=== PATIENT | male | born 1985 | race African-American/Black ===

== ENCOUNTER 2022-12-09 19:27 | Emergency (ER) | payer OTHER ==
[~2022-12-09] VITALS: Ht 172.7 cm; Wt 107.0 kg
[2022-12-09] VITALS (10 sets, daily range): BP systolic 104–135; BP diastolic 63–86
[2022-12-09 20:29] LABS: GFR FOR AFR.AMER. > 60 ML/MIN (>=60 (CALC)); GFR OTHER RACES > 60 ML/MIN (>=60 (CALC))
[2022-12-09] MEDS ORDERED: KEFLEX500 MG PO (21:35)
== END 2022-12-09 22:24 | DRG 605 ==
LOC: ED 19:27
PROVIDERS: Family Medicine
DX: S01.01XA Laceration without foreign body of scalp, initial encounter (principal); S11.91XA Laceration without foreign body of unspecified part of neck, initial encounter; W26.8XXA Contact with other sharp object(s), not elsewhere classified, initial encounter; Z23 Encounter for immunization